=== PATIENT | female | born 1950 | race Caucasian/White ===

== ENCOUNTER → 2018-04-27 | Outpatient (CLI) | payer MEDICARE ==
[2017-02-05 10:56] VITALS: BMI 36.7
[~2018-04-27] MED LIST: ALE70 PO; CALC500T6 PO; CELE-1 PO; DOC100 PO; ENO40I SQ; FERR28TA2 PO; LOSA-54 PO; MAGN27TA6 PO; MULT1TAB64 PO; OMEG-11 PO; OXY10 PO; PER PO; ZOL5 PO; ZOLP-350 PO; [UNRECOGNIZED DRUG - REMARK]
--- NOTE | 2018-04-28 08:29 | RADIOLOGY IMAGING REPORT ---
FACILITY: [facility] [place] PATIENT NAME: KOLBY BOSTON : [id number] MR: [id number] V: [id number] EXAM DATE: [id number] ORDERING PHYSICIAN: SELENA CARO TECHNOLOGIST: Kristin Mckeon PROCEDURE:BILATERAL DIGITAL SCREENING MAMMOGRAM WITH CAD ASSISTED INTERPRETATION & 3D TOMOSYNTHESIS COMPARISON:Prior mammograms 04/26/17, 03/13/15, 02/19/14, 12/28/12, 11/19/11. INDICATIONS:SCREENING FINDINGS: A small amount of fibroglandular tissue is seen throughout the breasts. The parenchymal pattern has remained stable allowing for difference in mammographic technique & patient positioning. There is no evidence of malignant appearing mass, malignant appearing calcifications or other secondary sign of malignancy in either breast. DIAGNOSTIC CATEGORY 1--NEGATIVE. RECOMMENDATIONS: ROUTINE MAMMOGRAM AND CLINICAL EVALUATION. IMPRESSION: BIRADS 1: Negative. No significant abnormality is seen. Dictated by: Iaona Teresa M.D. on 04/27/2018 at 16:10 Transcribed by: EARNEST on 04/28/2018 at 7:53 Approved by: Ioana Teresa M.D. on 04/28/2018 at 8:28 [facility]
== END ==
LOC: MAMO 01:25
PROVIDERS: ATTEND Physician Assistant
DX: Z12.31 Encounter for screening mammogram for malignant neoplasm of breast (principal)
CPT/HCPCS: 77063; 77067